=== PATIENT | male | born 1990 | race American Indian/Alaskan Native ===

== ENCOUNTER 2016-11-24 20:04 | Emergency (ER) | payer OTHER ==
[2016-11-25] MEDS ORDERED: TORADOL IM ONE (02:44)
[2016-11-25] MEDS ORDERED: FLEXERIL PO ONE (02:44)
[2016-11-25] MEDS ORDERED: NORCO 5/325 PO ONE (02:44)
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
[2016-11-25] MEDS ORDERED: CATAPRES ONE (04:09)
[2016-11-25] MEDS ORDERED: CATAPRES PO ONE (04:11)
[2016-11-25 04:44] VITALS: BP 168/99
== END 2016-11-25 04:43 | disposition home or self-care (01) ==
LOC: ED 20:04
DX: S39.012A Strain of muscle, fascia and tendon of lower back, initial encounter (principal); M25.562 Pain in left knee; R03.0 Elevated blood-pressure reading, without diagnosis of hypertension; V49.50XA Passenger injured in collision with unspecified motor vehicles in traffic accident, initial encounter; Y93.89 Activity, other specified; Y99.8 Other external cause status; Y92.89 Other specified places as the place of occurrence of the external cause
CPT/HCPCS: 73562; 93005; 93010; 99283; J1885